=== PATIENT | male | born 1990 | race Caucasian/White ===

== ENCOUNTER 2020-02-14 12:35 | Emergency (ER) | payer SELFPAY ==
[~2020-02-14] VITALS: Ht 162.6 cm; Wt 64.0 kg
[2020-02-14] MEDS ORDERED: KETOROLAC 60MG/2ML VIAL IM STA (13:47)
[2020-02-14] MEDS ORDERED: BACITRACIN ZINC OINT UDPKT TOP ONE (14:00)
[2020-02-14] MEDS ORDERED: TETANUS, DIPHTHERIA, PERTUSSIS VAC/PF 0.5ML (>7YR OLD) IM ONE (14:00)
[2020-02-14 15:53] VITALS: BP 138/65
== END 2020-02-14 15:56 | disposition home or self-care (01) ==
LOC: ER 12:35
DX: S62.522A Displaced fracture of distal phalanx of left thumb, initial encounter for closed fracture (principal); W45.8XXA Other foreign body or object entering through skin, initial encounter; Y93.89 Activity, other specified; Y92.89 Other specified places as the place of occurrence of the external cause; Y99.8 Other external cause status
CPT/HCPCS: 73140; 90471; 90715; 96372; 99284; J1885

== ENCOUNTER 2020-02-17 09:28 | Emergency (ER) | payer MEDICAID ==
[~2020-02-17] VITALS: Ht 162.6 cm; Wt 65.0 kg
[2020-02-17 09:36] VITALS: BP 123/72
== END 2020-02-17 12:33 | disposition home or self-care (01) ==
LOC: ER 09:28
DX: S60.312D Abrasion of left thumb, subsequent encounter (principal); Z48.00 Encounter for change or removal of nonsurgical wound dressing; X58.XXXD Exposure to other specified factors, subsequent encounter
CPT/HCPCS: 99283